=== PATIENT | female | born 1985 | race Caucasian/White ===

== ENCOUNTER 2016-04-05 20:46 | Emergency (ER) | payer MEDICAID, SELFPAY ==
[2016-04-05] MEDS ORDERED: ONDANSETRON 4MG/2ML VIAL (J2405) As Ordered ONE (22:37)
[2016-04-05] MEDS ORDERED: KETOROLAC 30 MG/ML VIAL (J1885) As Ordered ONE (22:37)
[2016-04-05 22:59] LABS: BASO % 0.3 % (0.0-1.0); EOS # 0.1 K/mm3 (0.0-0.50); EOS % 1.7 % (0.0-3.0); LARGE UNSTAINED CELL # 0.2 K/mm3 (0.0-0.4); LARGE UNSTAINED CELL % 2.6 % (0.0-4.0); LYMPH # 1.4 K/mm3 (1.5-4.5); LYMPH % 19.1 % (24.0-44.0); MEAN CORPUSCULAR HEMOGLOBIN 31.3 pg (27.0-33.0); MONO # 0.4 K/mm3 (0.0-0.8); MONO % 6.7 % (0.0-5.0); NEUTROPHILS # 4.5 K/mm3 (1.8-7.7); NEUTROPHILS % 69.6 % (36.0-66.0); PLATELET COUNT, AUTOMATED 237 k/mm3 (150-450); RED CELL DISTRIBUTION WIDTH 12.8 % (11.5-14.5); WHITE BLOOD COUNT 6.5 K/mm3 (4.0-10.0)
[2016-04-05 23:20] LABS: ALBUMIN 3.9 GM/DL (3.2-5.2); ALBUMIN/GLOBULIN RATIO 1.03 (1.00-1.93); ALKALINE PHOSPHATASE 59 U/L (45-117); ALT/SGPT 12 U/L (12-78); ANION GAP 8 MEQ/L (8-16); AST/SGOT 22 U/L (15-37); BILIRUBIN,DIRECT < 0.1 MG/DL (0.0-0.2); BILIRUBIN,TOTAL 0.6 MG/DL (0.2-1.0); BLOOD UREA NITROGEN 11 MG/DL (7-18); CALCIUM LEVEL 8.4 MG/DL (8.5-10.1); CARBON DIOXIDE LEVEL 25 MEQ/L (21-32); CHLORIDE LEVEL 106 MEQ/L (98-107); CREATININE FOR GFR 0.76 MG/DL (0.55-1.02); GLOMERULAR FILTRATION RATE > 60.0 (>60); GLUCOSE, FASTING 82 MG/DL (70-105); POTASSIUM SERUM 3.8 MEQ/L (3.5-5.1); SODIUM LEVEL 139 MEQ/L (136-145); TOTAL PROTEIN 7.7 GM/DL (6.4-8.2)
--- NOTE | 2016-04-05 23:48 | EDDOCDS ---
Physician Documentation [facility] Name: Alexa Thrasher Age: 30 yrs Sex: Female : 1985 Arrival Date: 04/05/2016 Time: 20:46 Bed I1 / M1 Private MD: Disposition: 04/05/16 23:37 Discharged to Home/Self Care. Impression: Generalized abdominal pain, Nausea and vomiting. - Condition is Stable. - Discharge Instructions: Viral Gastroenteritis. - Prescriptions for ZOFRAN ODT 4 mg - dissolve 1 tablet by ORAL route 4 times per day As needed do not chew, do not swallow whole; 10 tablet. - Medication Reconciliation form. - Follow up: Private Physician; When: Call to arrange an appointment; Reason: Wound/Symptom Recheck, Recheck today's complaints, Worsening of conditions, Continuance of care. - Problem is an ongoing problem. - Symptoms have improved. Historical: - Allergies: no known allergies; - PMHx: none; - PSHx: ; - Social history: Smoking status: Patient uses tobacco products, light tobacco smoker. No barriers to communication noted, The patient speaks fluent Sammarinese, Speaks appropriately for age. - Family history: Not pertinent. - : The pt / caregiver states he / she is not on anticoagulants. Home medication list is obtained from the patient. - Exposure Risk Screening:: None identified. 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 7 in. (170.18 cm) (R); Pain 7/10; 23:45 BP 106 / 63; Pulse 65; Resp 18; Temp 98.2(O); Pulse Ox 100% on R/A; Pain 0/10; kas2 20:48 Body Mass Index 21.93 (63.50 kg, 170.18 cm) lr2 MDM: 22:28 NS 0.9% 1000 ml IV at bolus once ordered. cc10 22:28 Ondansetron 4 mg IVP once ordered. cc10 22:28 ketorolac 30 mg IVP once ordered. cc10 22:28 IV Saline Lock ordered. cc10 22:28 Undress patient appropriately for examination ordered. cc10 22:29 Basic Metabolic Profile Ordered. EDMS 22:29 CBC with Diff Ordered. EDMS 22:29 Lipase Ordered. EDMS 22:29 Liver Profile Ordered. EDMS 22:29 Urinalysis Ordered. EDMS 22:29 Urine Culture Ordered. EDMS 22:29 Abdomen, Flat\E\Upright,PA Chest Ordered. EDMS 22:29 NOTHING BY MOUTH+DIET ordered. EDMS 23:05 CBC with Diff Reviewed. cc10 23:31 Basic Metabolic Profile Reviewed. cc10 23:31 Urinalysis Reviewed. cc10 23:31 Lipase Reviewed. cc10 23:31 Liver Profile Reviewed. cc10 Administered Medications: 22:47 Drug: NS 0.9% 1000 ml [sodium chloride 0.9 % intravenous solution] Route: IV; Rate: kc3 bolus; Site: right antecubital; 23:46 Follow up: IV Status: Completed infusion; IV Intake: 1000ml kas2 22:49 Drug: Ondansetron 4 mg [ondansetron HCl 2 mg/mL intravenous solution (2 mL)] Route: kc3 IVP; Site: right antecubital; 22:50 Drug: ketorolac 30 mg [ketorolac 30 mg/mL (1 mL) injection solution (1 mL)] Route: IVP; kc3 Site: right antecubital; Signatures: Dispatcher [employer] EDGilmar Kingsley RN RN mlb1 Michael Diamond, PADonC PA-C cc10 Goldie Lozano RN RN kas2 Glenny Romero RN kc3 MTDD
--- NOTE | 2016-04-05 23:48 | EDDOCDS ---
Nurse's Notes [facility] Name: Alexa Thrasher Age: 30 yrs Sex: Female : 1985 Arrival Date: 04/05/2016 Time: 20:46 Bed I1 / M1 Private MD: Diagnosis: Generalized abdominal pain;Nausea and vomiting Presentation: 04/05 20:54 Presenting complaint: Patient states: N/V fatigue feeling ill since Monday no BM for mlb1 the past 5 days. Risk factors: the patient reports a small or scant amount of vaginal bleeding. Adult Sepsis Screening: The patient does not have new or worsening altered mentation. Patient's respiratory rate is less than 22. Systolic blood pressure is greater than 100. Patient has a qSOFA score of 0- Negative Sepsis Screen. Suicide/Homicide risk assessment- the patient denies having any suicidal and/or homicidal ideations and does not present with any other emotional, behavioral or mental health complaints. Status: Patient is not a community service aide or dependent. Transition of care: patient was not received from another setting of care. 20:54 Method Of Arrival: Walkin/Carried/Asstd mlb1 20:54 Acuity: RAJINDER Level 3 mlb1 Triage Assessment: 20:57 General: Appears in no apparent distress, Behavior is appropriate for age, cooperative. mlb1 Pain: Location: umbilical area Pain currently is 3 out of 10 on a pain scale. At worst was 10 out of 10 on a pain scale. Pt Declines HIV testing. GI: Reports constipation, nausea, vomiting. 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 No barriers to communication noted, The patient speaks fluent Hungarian, Speaks appropriately for age. - Family history: Not pertinent. - : The pt / caregiver states he / she is not on anticoagulants. Home medication list is obtained from the patient. - Exposure Risk Screening:: None identified. Screenin:55 Screening information is obtained from the patient. Fall risk: No risks identified. kas2 Assistance ADL's: requires no assistance with activities of daily living. Abuse/DV Screen: The patient / caregiver reports he/she is: not in a situation that causes fear, pain or injury. Nutritional screening: No deficits noted. Advance Directives: Currently, there is no health care proxy. There is no active DNR order. There is no living will. There is no Power of Plant Control Aide. home support is adequate. Assessment: 22:53 General: Appears in no apparent distress, uncomfortable, well nourished, well groomed, kas2 Behavior is appropriate for age, cooperative. Pain: Location: umbilical area and abdomen and left lower quadrant and right lower quadrant Pain currently is 6 out of 10 on a pain scale. Neurological: Level of Consciousness is awake, alert, Oriented to person, place, time. Cardiovascular: Rhythm is regular Chest pain. Respiratory: Airway is patent Respiratory effort is even, unlabored, Respiratory pattern is regular, symmetrical, Breath sounds are clear bilaterally. GI: Abdomen is flat, non- distended Bowel sounds present X 4 quads. Abd is soft and non tender X 4 quads. Reports nausea, vomiting. Derm: Skin is intact, Skin is dry, Skin is pale, Skin temperature is warm. Vital Signs: 20:48 BP 94 / 53; Pulse 80; Resp 17; Temp 97.7(O); Pulse Ox 100% on R/A; Weight 63.5 kg (R); lr2 Height 5 ft. 7 in. (170.18 cm) (R); Pain 7/10; 23:45 BP 106 / 63; Pulse 65; Resp 18; Temp 98.2(O); Pulse Ox 100% on R/A; Pain 0/10; kas2 20:48 Body Mass Index 21.93 (63.50 kg, 170.18 cm) lr2 Vitals: 20:48 Log In Time: April 05, 2016 at 20:46. lr2 ED Course: 20:47 Patient visited by Susannah Obrien. lr2 20:47 Patient moved to Waiting lr2 20:49 Patient moved to Pre RCE lr2 20:54 Patient visited by Gilmar Wylie, MORA. mlb1 20:56 Triage Initiated mlb1 20:59 Patient visited by Gilmar Wylie, MORA. mlb1 21:52 Patient moved to Triage 2 mcp 22:21 Michael Diamond PA-C [facility]. cc10 22:21 Jacques Valdez MD is Attending Physician. cc10 22:21 Patient visited by Michael Diamond PA-C. cc10 22:21 Patient visited by Michael Diamond PA-C. cc10 22:29 Patient moved to I1 / M1 mcp 22:47 Basic Metabolic Profile Sent. kc3 22:47 CBC with Diff Sent. kc3 22:47 Lipase Sent. kc3 22:47 Liver Profile Sent. kc3 22:47 Urinalysis Sent. kc3 22:47 Urine Culture Sent. kc3 22:50 Inserted saline lock: 20 gauge in right antecubital area and blood collected. The kc3 patient tolerated the procedure well. placed by MORA Amezcua. 22:51 Patient visited by Glenny Romero RN. kc3 22:55 Patient visited by Goldie Lozano RN. kas2 22:57 Patient moved to Radiology kaleb 23:31 Patient moved to I1 / M1 kaleb 23:47 The patient / caregiver is instructed regarding the plan of care and ED course. kas2 23:47 Discontinued IV bleeding controlled, pressure dressing applied, No redness/swelling at kas2 site. No procedures done that require assistance. Administered Medications: 22:47 Drug: NS 0.9% 1000 ml [sodium chloride 0.9 % intravenous solution] Route: IV; Rate: kc3 bolus; Site: right antecubital; 23:46 Follow up: IV Status: Completed infusion; IV Intake: 1000ml kas2 22:49 Drug: Ondansetron 4 mg [ondansetron HCl 2 mg/mL intravenous solution (2 mL)] Route: kc3 IVP; Site: right antecubital; 22:50 Drug: ketorolac 30 mg [ketorolac 30 mg/mL (1 mL) injection solution (1 mL)] Route: IVP; kc3 Site: right antecubital; Intake: 23:46 IV: 1000.00ml; Total: 1000.00ml. kas2 Order Results: Lab Order: Basic Metabolic Profile; SPEC'M 04/05/16 22:49 Test: GLUCOSE, FASTING; Value: 82; Range: 70-105; Units: MG/DL; Status: F Test: BLOOD UREA NITROGEN; Value: 11; Range: 7-18; Units: MG/DL; Status: F Test: CREATININE FOR GFR; Value: 0.76; Range: 0.55-1.02; Units: MG/DL; Status: F Test: GLOMERULAR FILTRATION RATE; Value: > 60.0; Range: >60; Status: F Test: SODIUM LEVEL; Value: 139; Range: 136-145; Units: MEQ/L; Status: F Test: POTASSIUM SERUM; Value: 3.8; Range: 3.5-5.1; Units: MEQ/L; Status: F Test: CHLORIDE LEVEL; Value: 106; Range: 98-107; Units: MEQ/L; Status: F Test: CARBON DIOXIDE LEVEL; Value: 25; Range: 21-32; Units: MEQ/L; Status: F Test: ANION GAP; Value: 8; Range: 8-16; Units: MEQ/L; Status: F Test: CALCIUM LEVEL; Value: 8.4; Range: 8.5-10.1; Abnormal: Below low normal; Units: MG/DL; Status: F Test Note: ; Units are mL/min/1.73 m2 Chronic Kidney Disease Staging per NKF: Stage I & II GFR >=60 Normal to Mildly Decreased Stage III GFR 30-59 Moderately Decreased Stage IV GFR 15-29 Severely Decreased Stage V GFR <15 Very Little GFR Left ESRD GFR <15 on V[employer]IN[employer]IST Lab Order: CBC with Diff; SPEC'M 04/05/16 22:49 Test: WHITE BLOOD COUNT; Value: 6.5; Range: 4.0-10.0; Units: K/mm3; Status: F Test: RED BLOOD COUNT; Value: 4.80; Range: 4.00-5.40; Units: M/mm3; Status: F Test: HEMOGLOBIN; Value: 15.0; Range: 12.0-16.0; Units: g/dl; Status: F Test: HEMATOCRIT; Value: 44.2; Range: 36.0-47.0; Units: %; Status: F Test: MEAN CORPUSCULAR VOLUME; Value: 92.0; Range: 80.0-96.0; Units: fl; Status: F Test: MEAN CORPUSCULAR HEMOGLOBIN; Value: 31.3; Range: 27.0-33.0; Units: pg; Status: F Test: MEAN CORPUSCULAR HGB CONC; Value: 34.0; Range: 32.0-36.5; Units: g/dl; Status: F Test: RED CELL DISTRIBUTION WIDTH; Value: 12.8; Range: 11.5-14.5; Units: %; Status: F Test: PLATELET COUNT, AUTOMATED; Value: 237; Range: 150-450; Units: k/mm3; Status: F Test: NEUTROPHILS %; Value: 69.6; Range: 36.0-66.0; Abnormal: Above high normal; Units: %; Status: F Test: LYMPH %; Value: 19.1; Range: 24.0-44.0; Abnormal: Below low normal; Units: %; Status: F Test: MONO %; Value: 6.7; Range: 0.0-5.0; Abnormal: Above high normal; Units: %; Status: F Test: EOS %; Value: 1.7; Range: 0.0-3.0; Units: %; Status: F Test: BASO %; Value: 0.3; Range: 0.0-1.0; Units: %; Status: F Test: LARGE UNSTAINED CELL %; Value: 2.6; Range: 0.0-4.0; Units: %; Status: F Test: NEUTROPHILS #; Value: 4.5; Range: 1.8-7.7; Units: K/mm3; Status: F Test: LYMPH #; Value: 1.4; Range: 1.5-4.5; Abnormal: Below low normal; Units: K/mm3; Status: F Test: MONO #; Value: 0.4; Range: 0.0-0.8; Units: K/mm3; Status: F Test: EOS #; Value: 0.1; Range: 0.0-0.50; Units: K/mm3; Status: F Test: BASO #; Value: 0.0; Range: 0.0-0.2; Units: K/mm3; Status: F Test: LARGE UNSTAINED CELL #; Value: 0.2; Range: 0.0-0.4; Units: K/mm3; Status: F Lab Order: Lipase; SPEC'M 04/05/16 22:49 Test: LIPASE; Value: 162; Range: 73-393; Units: U/L; Status: F Lab Order: Liver Profile; SPEC'M 04/05/16 22:49 Test: AST/SGOT; Value: 22; Range: 15-37; Units: U/L; Status: F Test: ALT/SGPT; Value: 12; Range: 12-78; Units: U/L; Status: F Test: ALKALINE PHOSPHATASE; Value: 59; Range: 45-117; Units: U/L; Status: F Test: BILIRUBIN,TOTAL; Value: 0.6; Range: 0.2-1.0; Units: MG/DL; Status: F Test: BILIRUBIN,DIRECT; Value: < 0.1; Range: 0.0-0.2; Units: MG/DL; Status: F Test: TOTAL PROTEIN; Value: 7.7; Range: 6.4-8.2; Units: GM/DL; Status: F Test: ALBUMIN; Value: 3.9; Range: 3.2-5.2; Units: GM/DL; Status: F Test: ALBUMIN/GLOBULIN RATIO; Value: 1.03; Range: 1.00-1.93; Status: F Lab Order: Urinalysis; SPEC'M 04/05/16 22:49 Test: APPEARANCE, URINE; Value: CLOUDY; Range: CLEAR; Abnormal: Above high normal; Status: F Test: COLOR, URINE; Value: YELLOW; Range: YELLOW; Status: F Test: PH,URINE; Value: 5.0; Range: 5.0-9.0; Units: UNITS; Status: F Test: SPECIFIC GRAVITY URINE AUTO; Value: 1.018; Range: 1.002-1.035; Status: F Test: PROTEIN, URINE AUTO; Value: NEGATIVE; Range: NEGATIVE; Units: mg/dL; Status: F Test: GLUCOSE, URINE (UA) AUTO; Value: NEGATIVE; Range: NEGATIVE; Units: mg/dL; Status: F Test: KETONE, URINE AUTO; Value: 1+; Range: NEGATIVE; Abnormal: Above high normal; Units: mg/dL; Status: F Test: UROBILINOGEN, URINE AUTO; Value: 2.0; Range: 0.0-2.0; Abnormal: Above high normal; Units: mg/dL; Status: F Test: BILIRUBIN, URINE AUTO; Value: NEGATIVE; Range: NEGATIVE; Status: F Test: NITRITE, URINE AUTO; Value: POSITIVE; Range: NEGATIVE; Status: F Test: LEUKOCYTE ESTERASE, URINE AUTO; Value: NEGATIVE; Range: NEGATIVE; Status: F Test: BLOOD, URINE BLOOD; Value: 2+; Range: NEGATIVE; Abnormal: Above high normal; Status: F Test: WBC, URINE AUTO; Value: 3; Range: 0-3; Units: /HPF; Status: F Test: RBC, URINE AUTO; Value: 4; Range: 0-3; Abnormal: Above high normal; Units: /HPF; Status: F Test: BACTERIA, URINE AUTO; Value: 2+; Range: NEGATIVE; Abnormal: Above high normal; Status: F Test: SQUAMOUS EPITHELIAL CELL UR AU; Value: 8; Range: 0-6; Units: /HPF; Status: F Test: MUCUS, URINE; Value: SMALL; Range: NEGATIVE; Status: F Test: HYALINE CAST, URINE AUTO; Value: 0; Range: 0-1; Units: /LPF; Status: F Outcome: 23:37 Discharge ordered by Provider. cc10 23:46 Discharge Assessment: patient administered narcotics - no. The following High Risk [facility] Discharge criteria are identified: None. Discharged to home ambulatory, with significant other. Condition: good Condition: stable Condition: improved. CT Study completed. Property :Personal belongings accompany Pt. 23:47 Patient left the ED. [facility] Signatures: Aspen Bynum RN RN Christian Hawkins Michael B RN RN mlb1 Michael Diamond, PA-C PA-C cc10 Glenny Romero RN RN [id number] Goldie Lozano RN RN [email or web address] Susannah Obrien2 Corrections: (The following items were deleted from the chart) 20:57 20:54 Presenting complaint: Patient states: N/V fatigue feeling ill since Monday mlb1 mlb1 20:57 20:54 Acuity: RAJINDER Level 4 mlb1 mlb1 MTDD
--- NOTE | 2016-04-06 08:34 | REP ---
CHEST AND ABDOMEN: On the chest study, the cardiomediastinal structures, lungs, diaphragms and bony thorax are normal. On the abdominal study, there is some gas and fecal material in the colon. No evidence for ileus, free air or obstruction. At the umbilicus is an ornamentation. The lumbar spine shows minimal to moderate dextroscoliosis with the apex at the level of L1-L2. IMPRESSION: There are no acute findings in the chest or abdomen. Dextroscoliosis lumbar spine. Unreviewed
--- NOTE | 2016-04-08 00:48 | EDDOCDS ---
Physician Documentation [facility] Name: Alexa Thrasher Age: 30 yrs Sex: Female : 1985 Arrival Date: 04/05/2016 Time: 20:46 Bed I1 / M1 Private MD: Disposition: 04/05/16 23:37 Discharged to Home/Self Care. Impression: Generalized abdominal pain, Nausea and vomiting. - Condition is Stable. - Discharge Instructions: Viral Gastroenteritis. - Prescriptions for ZOFRAN ODT 4 mg - dissolve 1 tablet by ORAL route 4 times per day As needed do not chew, do not swallow whole; 10 tablet. - Medication Reconciliation form. - Follow up: Private Physician; When: Call to arrange an appointment; Reason: Wound/Symptom Recheck, Recheck today's complaints, Worsening of conditions, Continuance of care. - Problem is an ongoing problem. - Symptoms have improved. Historical: - Allergies: no known allergies; - PMHx: none; - PSHx: ; - Social history: Smoking status: Patient uses tobacco products, light tobacco smoker. No barriers to communication noted, The patient speaks fluent Pakistani, Speaks appropriately for age. - Family history: Not pertinent. - : The pt / caregiver states he / she is not on anticoagulants. Home medication list is obtained from the patient. - Exposure Risk Screening:: None identified. 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 7 in. (170.18 cm) (R); Pain 7/10; 23:45 BP 106 / 63; Pulse 65; Resp 18; Temp 98.2(O); Pulse Ox 100% on R/A; Pain 0/10; kas2 20:48 Body Mass Index 21.93 (63.50 kg, 170.18 cm) lr2 MDM: 22:28 NS 0.9% 1000 ml IV at bolus once ordered. cc10 22:28 Ondansetron 4 mg IVP once ordered. cc10 22:28 ketorolac 30 mg IVP once ordered. cc10 22:28 IV Saline Lock ordered. cc10 22:28 Undress patient appropriately for examination ordered. cc10 22:29 Basic Metabolic Profile Ordered. EDMS 22:29 CBC with Diff Ordered. EDMS 22:29 Lipase Ordered. EDMS 22:29 Liver Profile Ordered. EDMS 22:29 Urinalysis Ordered. EDMS 22:29 Urine Culture Ordered. EDMS 22:29 Abdomen, Flat\E\Upright,PA Chest Ordered. EDMS 22:29 NOTHING BY MOUTH+DIET ordered. EDMS 23:05 CBC with Diff Reviewed. cc10 23:31 Basic Metabolic Profile Reviewed. cc10 23:31 Urinalysis Reviewed. cc10 23:31 Lipase Reviewed. cc10 23:31 Liver Profile Reviewed. cc10 04/06 13:50 T-Sheet-- Draft Copy was scanned into [employer] and attached to record. gb Administered Medications: 04/05 22:47 Drug: NS 0.9% 1000 ml [sodium chloride 0.9 % intravenous solution] Route: IV; Rate: kc3 bolus; Site: right antecubital; 23:46 Follow up: IV Status: Completed infusion; IV Intake: 1000ml [facility] 22:49 Drug: Ondansetron 4 mg [ondansetron HCl 2 mg/mL intravenous solution (2 mL)] Route: kc3 IVP; Site: right antecubital; 22:50 Drug: ketorolac 30 mg [ketorolac 30 mg/mL (1 mL) injection solution (1 mL)] Route: IVP; kc3 Site: right antecubital; Signatures: Dispatcher [place] [employer] Gissel Reed, Reg Reg Gilmar Wylie RN RN mlb1 Michael Diamond, PA-C PA-C cc10 Goldie Lozano RN RN kas2 Glenny Romero RN kc3 The chart was reviewed and I authenticate all verbal orders and agree with the evaluation and treatment provided.Attachments: 04/06 13:50 T-Sheet-- Draft Copy Chart Complete MTDD
--- NOTE | 2016-04-08 00:48 | EDDOCDS ---
Nurse's Notes [facility] Name: Alexa Thrasher Age: 30 yrs Sex: Female : 1985 Arrival Date: 04/05/2016 Time: 20:46 Bed I1 / M1 Private MD: Diagnosis: Generalized abdominal pain;Nausea and vomiting Presentation: 04/05 20:54 Presenting complaint: Patient states: N/V fatigue feeling ill since Monday no BM for mlb1 the past 5 days. Risk factors: the patient reports a small or scant amount of vaginal bleeding. Adult Sepsis Screening: The patient does not have new or worsening altered mentation. Patient's respiratory rate is less than 22. Systolic blood pressure is greater than 100. Patient has a qSOFA score of 0- Negative Sepsis Screen. Suicide/Homicide risk assessment- the patient denies having any suicidal and/or homicidal ideations and does not present with any other emotional, behavioral or mental health complaints. Status: Patient is not a environmental services associate or dependent. Transition of care: patient was not received from another setting of care. 20:54 Method Of Arrival: Walkin/Carried/Asstd mlb1 20:54 Acuity: RAJINDER Level 3 mlb1 Triage Assessment: 20:57 General: Appears in no apparent distress, Behavior is appropriate for age, cooperative. mlb1 Pain: Location: umbilical area Pain currently is 3 out of 10 on a pain scale. At worst was 10 out of 10 on a pain scale. Pt Declines HIV testing. GI: Reports constipation, nausea, vomiting. RN REVIEW: 20:58 LMP 03/30/2016 mlb1 Historical: - Allergies: no known allergies; - PMHx: none; - PSHx: ; - Social history: Smoking status: Patient uses tobacco products, light tobacco smoker. No barriers to communication noted, The patient speaks fluent Maltese, Speaks appropriately for age. - Family history: Not pertinent. - : The pt / caregiver states he / she is not on anticoagulants. Home medication list is obtained from the patient. - Exposure Risk Screening:: None identified. Screenin:55 Screening information is obtained from the patient. Fall risk: No risks identified. kas2 Assistance ADL's: requires no assistance with activities of daily living. Abuse/DV Screen: The patient / caregiver reports he/she is: not in a situation that causes fear, pain or injury. Nutritional screening: No deficits noted. Advance Directives: Currently, there is no health care proxy. There is no active DNR order. There is no living will. There is no Power of Freight Conductor. home support is adequate. Assessment: 22:53 General: Appears in no apparent distress, uncomfortable, well nourished, well groomed, kas2 Behavior is appropriate for age, cooperative. Pain: Location: umbilical area and abdomen and left lower quadrant and right lower quadrant Pain currently is 6 out of 10 on a pain scale. Neurological: Level of Consciousness is awake, alert, Oriented to person, place, time. Cardiovascular: Rhythm is regular Chest pain. Respiratory: Airway is patent Respiratory effort is even, unlabored, Respiratory pattern is regular, symmetrical, Breath sounds are clear bilaterally. GI: Abdomen is flat, non- distended Bowel sounds present X 4 quads. Abd is soft and non tender X 4 quads. Reports nausea, vomiting. Derm: Skin is intact, Skin is dry, Skin is pale, Skin temperature is warm. Vital Signs: 20:48 BP 94 / 53; Pulse 80; Resp 17; Temp 97.7(O); Pulse Ox 100% on R/A; Weight 63.5 kg (R); lr2 Height 5 ft. 7 in. (170.18 cm) (R); Pain 7/10; 23:45 BP 106 / 63; Pulse 65; Resp 18; Temp 98.2(O); Pulse Ox 100% on R/A; Pain 0/10; kas2 20:48 Body Mass Index 21.93 (63.50 kg, 170.18 cm) lr2 Vitals: 20:48 Log In Time: April 05, 2016 at 20:46. lr2 ED Course: 20:47 Patient visited by Susannah Obrien. lr2 20:47 Patient moved to Waiting lr2 20:49 Patient moved to Pre RCE lr2 20:54 Patient visited by Gilmar Wylie, MORA. mlb1 20:56 Triage Initiated mlb1 20:59 Patient visited by Gilmar Wylie, MORA. mlb1 21:52 Patient moved to Triage 2 mcp 22:21 [facility] Diamond [facility] cc10 22:21 Jacques Valdez MD is Attending Physician. cc10 22:21 Patient visited by Michael Diamond PA-C. cc10 22:21 Patient visited by Michael Diamond PA-C. cc10 22:29 Patient moved to I1 / M1 mcp 22:47 Basic Metabolic Profile Sent. kc3 22:47 CBC with Diff Sent. kc3 22:47 Lipase Sent. kc3 22:47 Liver Profile Sent. kc3 22:47 Urinalysis Sent. kc3 22:47 Urine Culture Sent. kc3 22:50 Inserted saline lock: 20 gauge in right antecubital area and blood collected. The kc3 patient tolerated the procedure well. placed by MORA Amezcua. 22:51 Patient visited by Glenny Romero RN. kc3 22:55 Patient visited by Goldie Lozano RN. kas2 22:57 Patient moved to Radiology kaleb 23:31 Patient moved to I1 / M1 kaleb 23:47 The patient / caregiver is instructed regarding the plan of care and ED course. kas2 23:47 Discontinued IV bleeding controlled, pressure dressing applied, No redness/swelling at kas2 site. No procedures done that require assistance. 04/06 08:45 Abdomen, Flat\E\Upright,PA Chest Returned. EDMS 13:50 T-Sheet-- Draft Copy was scanned into [employer] and attached to record. gb Administered Medications: 04/05 22:47 Drug: NS 0.9% 1000 ml [sodium chloride 0.9 % intravenous solution] Route: IV; Rate: kc3 bolus; Site: right antecubital; 23:46 Follow up: IV Status: Completed infusion; IV Intake: 1000ml [facility] 22:49 Drug: Ondansetron 4 mg [ondansetron HCl 2 mg/mL intravenous solution (2 mL)] Route: kc3 IVP; Site: right antecubital; 22:50 Drug: ketorolac 30 mg [ketorolac 30 mg/mL (1 mL) injection solution (1 mL)] Route: IVP; kc3 Site: right antecubital; Intake: 23:46 IV: 1000.00ml; Total: 1000.00ml. kas2 Order Results: Lab Order: Basic Metabolic Profile; SPEC'M 04/05/16 22:49 Test: GLUCOSE, FASTING; Value: 82; Range: 70-105; Units: MG/DL; Status: F Test: BLOOD UREA NITROGEN; Value: 11; Range: 7-18; Units: MG/DL; Status: F Test: CREATININE FOR GFR; Value: 0.76; Range: 0.55-1.02; Units: MG/DL; Status: F Test: GLOMERULAR FILTRATION RATE; Value: > 60.0; Range: >60; Status: F Test: SODIUM LEVEL; Value: 139; Range: 136-145; Units: MEQ/L; Status: F Test: POTASSIUM SERUM; Value: 3.8; Range: 3.5-5.1; Units: MEQ/L; Status: F Test: CHLORIDE LEVEL; Value: 106; Range: 98-107; Units: MEQ/L; Status: F Test: CARBON DIOXIDE LEVEL; Value: 25; Range: 21-32; Units: MEQ/L; Status: F Test: ANION GAP; Value: 8; Range: 8-16; Units: MEQ/L; Status: F Test: CALCIUM LEVEL; Value: 8.4; Range: 8.5-10.1; Abnormal: Below low normal; Units: MG/DL; Status: F Test Note: ; Units are mL/min/1.73 m2 Chronic Kidney Disease Staging per NKF: Stage I & II GFR >=60 Normal to Mildly Decreased Stage III GFR 30-59 Moderately Decreased Stage IV GFR 15-29 Severely Decreased Stage V GFR <15 Very Little GFR Left ESRD GFR <15 on HOME VISITS NURSE Lab Order: CBC with Diff; SPEC'M 04/05/16 22:49 Test: WHITE BLOOD COUNT; Value: 6.5; Range: 4.0-10.0; Units: K/mm3; Status: F Test: RED BLOOD COUNT; Value: 4.80; Range: 4.00-5.40; Units: M/mm3; Status: F Test: HEMOGLOBIN; Value: 15.0; Range: 12.0-16.0; Units: g/dl; Status: F Test: HEMATOCRIT; Value: 44.2; Range: 36.0-47.0; Units: %; Status: F Test: MEAN CORPUSCULAR VOLUME; Value: 92.0; Range: 80.0-96.0; Units: fl; Status: F Test: MEAN CORPUSCULAR HEMOGLOBIN; Value: 31.3; Range: 27.0-33.0; Units: pg; Status: F Test: MEAN CORPUSCULAR HGB CONC; Value: 34.0; Range: 32.0-36.5; Units: g/dl; Status: F Test: RED CELL DISTRIBUTION WIDTH; Value: 12.8; Range: 11.5-14.5; Units: %; Status: F Test: PLATELET COUNT, AUTOMATED; Value: 237; Range: 150-450; Units: k/mm3; Status: F Test: NEUTROPHILS %; Value: 69.6; Range: 36.0-66.0; Abnormal: Above high normal; Units: %; Status: F Test: LYMPH %; Value: 19.1; Range: 24.0-44.0; Abnormal: Below low normal; Units: %; Status: F Test: MONO %; Value: 6.7; Range: 0.0-5.0; Abnormal: Above high normal; Units: %; Status: F Test: EOS %; Value: 1.7; Range: 0.0-3.0; Units: %; Status: F Test: BASO %; Value: 0.3; Range: 0.0-1.0; Units: %; Status: F Test: LARGE UNSTAINED CELL %; Value: 2.6; Range: 0.0-4.0; Units: %; Status: F Test: NEUTROPHILS #; Value: 4.5; Range: 1.8-7.7; Units: K/mm3; Status: F Test: LYMPH #; Value: 1.4; Range: 1.5-4.5; Abnormal: Below low normal; Units: K/mm3; Status: F Test: MONO #; Value: 0.4; Range: 0.0-0.8; Units: K/mm3; Status: F Test: EOS #; Value: 0.1; Range: 0.0-0.50; Units: K/mm3; Status: F Test: BASO #; Value: 0.0; Range: 0.0-0.2; Units: K/mm3; Status: F Test: LARGE UNSTAINED CELL #; Value: 0.2; Range: 0.0-0.4; Units: K/mm3; Status: F Lab Order: Lipase; SPEC'M 04/05/16 22:49 Test: LIPASE; Value: 162; Range: 73-393; Units: U/L; Status: F Lab Order: Liver Profile; SPEC'M 04/05/16 22:49 Test: AST/SGOT; Value: 22; Range: 15-37; Units: U/L; Status: F Test: ALT/SGPT; Value: 12; Range: 12-78; Units: U/L; Status: F Test: ALKALINE PHOSPHATASE; Value: 59; Range: 45-117; Units: U/L; Status: F Test: BILIRUBIN,TOTAL; Value: 0.6; Range: 0.2-1.0; Units: MG/DL; Status: F Test: BILIRUBIN,DIRECT; Value: < 0.1; Range: 0.0-0.2; Units: MG/DL; Status: F Test: TOTAL PROTEIN; Value: 7.7; Range: 6.4-8.2; Units: GM/DL; Status: F Test: ALBUMIN; Value: 3.9; Range: 3.2-5.2; Units: GM/DL; Status: F Test: ALBUMIN/GLOBULIN RATIO; Value: 1.03; Range: 1.00-1.93; Status: F Lab Order: Urinalysis; SPEC'M 04/05/16 22:49 Test: APPEARANCE, URINE; Value: CLOUDY; Range: CLEAR; Abnormal: Above high normal; Status: F Test: COLOR, URINE; Value: YELLOW; Range: YELLOW; Status: F Test: PH,URINE; Value: 5.0; Range: 5.0-9.0; Units: UNITS; Status: F Test: SPECIFIC GRAVITY URINE AUTO; Value: 1.018; Range: 1.002-1.035; Status: F Test: PROTEIN, URINE AUTO; Value: NEGATIVE; Range: NEGATIVE; Units: mg/dL; Status: F Test: GLUCOSE, URINE (UA) AUTO; Value: NEGATIVE; Range: NEGATIVE; Units: mg/dL; Status: F Test: KETONE, URINE AUTO; Value: 1+; Range: NEGATIVE; Abnormal: Above high normal; Units: mg/dL; Status: F Test: UROBILINOGEN, URINE AUTO; Value: 2.0; Range: 0.0-2.0; Abnormal: Above high normal; Units: mg/dL; Status: F Test: BILIRUBIN, URINE AUTO; Value: NEGATIVE; Range: NEGATIVE; Status: F Test: NITRITE, URINE AUTO; Value: POSITIVE; Range: NEGATIVE; Status: F Test: LEUKOCYTE ESTERASE, URINE AUTO; Value: NEGATIVE; Range: NEGATIVE; Status: F Test: BLOOD, URINE BLOOD; Value: 2+; Range: NEGATIVE; Abnormal: Above high normal; Status: F Test: WBC, URINE AUTO; Value: 3; Range: 0-3; Units: /HPF; Status: F Test: RBC, URINE AUTO; Value: 4; Range: 0-3; Abnormal: Above high normal; Units: /HPF; Status: F Test: BACTERIA, URINE AUTO; Value: 2+; Range: NEGATIVE; Abnormal: Above high normal; Status: F Test: SQUAMOUS EPITHELIAL CELL UR AU; Value: 8; Range: 0-6; Units: /HPF; Status: F Test: MUCUS, URINE; Value: SMALL; Range: NEGATIVE; Status: F Test: HYALINE CAST, URINE AUTO; Value: 0; Range: 0-1; Units: /LPF; Status: F Radiology Order: Abdomen, Flat\E\Upright,PA Chest Test: Abdomen, Flat\E\Upright,PA Chest REASON FOR EXAMINATION: Abdomen Pain; CHEST AND ABDOMEN:; ; On the chest study, the cardiomediastinal structures, lungs, diaphragms and bony; thorax are normal.; ; On the abdominal study, there is some gas and fecal material in the colon. No; evidence for ileus, free air or obstruction. At the umbilicus is an; ornamentation.; ; The lumbar spine shows minimal to moderate dextroscoliosis with the apex at the; level of L1-L2.; ; IMPRESSION:; There are no acute findings in the chest or abdomen. Dextroscoliosis lumbar; spine.; ; ; ; ; Unreviewed; Outcome: 23:37 Discharge ordered by Provider. cc10 23:46 Discharge Assessment: patient administered narcotics - no. The following High Risk [facility] Discharge criteria are identified: None. Discharged to home ambulatory, with significant other. Condition: good Condition: stable Condition: improved. CT Study completed. Property :Personal belongings accompany Pt. 23:47 [facility] ED. [facility] Signatures: Dispatcher [employer] EDAspen Castillo RN RN mcp Bartlett, Floyd fab Barnhardt, Gloria, Gilmar Ruff RN RN mlb1 Michael Diamond PA-C PADonC cc10 Glenny RomeroRN RN kc3 Goldie LozanoRN RN kas2 Susannah Obrien2 Corrections: (The following items were deleted from the chart) 20:54 Presenting complaint: Patient states: N/V fatigue feeling ill since Monday mlb1 mlb1 20:54 Acuity: RAJINDER Level 4 mlb1 mlb1 Chart Complete MTDD
--- NOTE | 2016-04-08 00:48 | EDDOCDS ---
Physician Documentation [facility] Name: Alexa Thrasher Age: 30 yrs Sex: Female : 1985 Arrival Date: 04/05/2016 Time: 20:46 Bed I1 / M1 Private MD: Disposition: 04/05/16 23:37 Discharged to Home/Self Care. Impression: Generalized abdominal pain, Nausea and vomiting. - Condition is Stable. - Discharge Instructions: Viral Gastroenteritis. - Prescriptions for ZOFRAN ODT 4 mg - dissolve 1 tablet by ORAL route 4 times per day As needed do not chew, do not swallow whole; 10 tablet. - Medication Reconciliation form. - Follow up: Private Physician; When: Call to arrange an appointment; Reason: Wound/Symptom Recheck, Recheck today's complaints, Worsening of conditions, Continuance of care. - Problem is an ongoing problem. - Symptoms have improved. Historical: - Allergies: no known allergies; - PMHx: none; - PSHx: ; - Social history: Smoking status: Patient uses tobacco products, light tobacco smoker. No barriers to communication noted, The patient speaks fluent Luxembourger, Speaks appropriately for age. - Family history: Not pertinent. - : The pt / caregiver states he / she is not on anticoagulants. Home medication list is obtained from the patient. - Exposure Risk Screening:: None identified. TELEPHONE INFORMATION CLERK: 04/05 20:58 LMP 03/30/2016 mlb1 Vital Signs: 20:48 BP 94 / 53; Pulse 80; Resp 17; Temp 97.7(O); Pulse Ox 100% on R/A; Weight 63.5 kg / lr2 139.99 lbs (R); Height 5 ft. 7 in. (170.18 cm) (R); Pain 7/10; 23:45 BP 106 / 63; Pulse 65; Resp 18; Temp 98.2(O); Pulse Ox 100% on R/A; Pain 0/10; kas2 20:48 Body Mass Index 21.93 (63.50 kg, 170.18 cm) lr2 MDM: 22:28 NS 0.9% 1000 ml IV at bolus once ordered. cc10 22:28 Ondansetron 4 mg IVP once ordered. cc10 22:28 ketorolac 30 mg IVP once ordered. cc10 22:28 IV Saline Lock ordered. cc10 22:28 Undress patient appropriately for examination ordered. cc10 22:29 Basic Metabolic Profile Ordered. EDMS 22:29 CBC with Diff Ordered. EDMS 22:29 Lipase Ordered. EDMS 22:29 Liver Profile Ordered. EDMS 22:29 Urinalysis Ordered. EDMS 22:29 Urine Culture Ordered. EDMS 22:29 Abdomen, Flat\E\Upright,PA Chest Ordered. EDMS 22:29 NOTHING BY MOUTH+DIET ordered. EDMS 23:05 CBC with Diff Reviewed. cc10 23:31 Basic Metabolic Profile Reviewed. cc10 23:31 Urinalysis Reviewed. cc10 23:31 Lipase Reviewed. cc10 23:31 Liver Profile Reviewed. cc10 04/06 13:50 T-Sheet-- Draft Copy was scanned into [employer] and attached to record. gb Administered Medications: 04/05 22:47 Drug: NS 0.9% 1000 ml [sodium chloride 0.9 % intravenous solution] Route: IV; Rate: kc3 bolus; Site: right antecubital; 23:46 Follow up: IV Status: Completed infusion; IV Intake: 1000ml [facility] 22:49 Drug: Ondansetron 4 mg [ondansetron HCl 2 mg/mL intravenous solution (2 mL)] Route: kc3 IVP; Site: right antecubital; 22:50 Drug: ketorolac 30 mg [ketorolac 30 mg/mL (1 mL) injection solution (1 mL)] Route: IVP; kc3 Site: right antecubital; Signatures: Dispatcher [employer] EDNE Gissel Reed, Reg Reg Gilmar Wylie RN RN mlb1 Michael Diamond, PA-C PA-C cc10 Goldie Lozano RN RN kas2 Glenny Romero RN kc3 The chart was reviewed and I authenticate all verbal orders and agree with the evaluation and treatment provided.Attachments: 04/06 13:50 T-Sheet-- Draft Copy Chart Complete MTDD
== END 2016-04-05 23:47 | disposition home or self-care (01) ==
LOC: M ED 20:46
DX: R11.2 Nausea with vomiting, unspecified (principal); R19.7 Diarrhea, unspecified; F17.210 Nicotine dependence, cigarettes, uncomplicated
CPT/HCPCS: 36415; 74022; 80048; 80076; 81001; 83690; 85025; 87088; 87186; 96361; 96374; 96375; 99284; J1885; J2405

== ENCOUNTER 2018-01-08 15:17 | Emergency (ER) | payer SELFPAY ==
[2018-01-08 16:34] LABS: BASO % 0.3 % (0.0-1.0); EOS % 0.2 % (0.0-3.0); HEMATOCRIT 39.4 % (36.0-47.0); HEMOGLOBIN 13.8 g/dl (12.0-15.5); IMMATURE GRANULOCYTE % 0.4 % (0-3.0); LYMPH # 1.4 10^3/uL (1.5-4.5); MEAN CORPUSCULAR HEMOGLOBIN 32.2 pg (27.0-33.0); MEAN CORPUSCULAR VOLUME 91.8 fl (80.0-96.0); MONO # 0.6 10^3/uL (0.0-0.8); MONO % 5.8 % (0.0-5.0); NEUTROPHILS % 79.3 % (36.0-66.0); PLATELET COUNT, AUTOMATED 228 10^3/uL (150-450); RED BLOOD COUNT 4.29 10^6/uL (4.00-5.40); RED CELL DISTRIBUTION WIDTH 11.9 % (11.5-14.5)
[2018-01-08 17:27] LABS: ANION GAP 10 MEQ/L (8-16); BLOOD UREA NITROGEN 6 MG/DL (7-18); CALCIUM LEVEL 9.2 MG/DL (8.5-10.1); CARBON DIOXIDE LEVEL 23 MEQ/L (21-32); CHLORIDE LEVEL 104 MEQ/L (98-107); CREATININE FOR GFR 0.59 MG/DL (0.55-1.30); GLOMERULAR FILTRATION RATE > 60.0 (>60); GLUCOSE, FASTING 79 MG/DL (70-100); HCG, SERUM QUANTITATIVE 138148 MIU/ML; LIPASE 175 U/L (73-393); POTASSIUM SERUM 3.9 MEQ/L (3.5-5.1); SODIUM LEVEL 137 MEQ/L (136-145)
[2018-01-08] MEDS: METOCLOPRAMIDE INJ 10MG/2ML VIAL (J2765) IV (18:26)
[2018-01-08] MEDS: NS 1,000 ML IV (18:26)
[2018-01-08] MEDS: PROMETHAZINE INJ 25 MG/ML VIAL (J2550) IV (20:15)
== END 2018-01-08 21:28 | disposition home or self-care (01) ==
LOC: M ED 15:17
DX: O21.0 Mild hyperemesis gravidarum (principal); Z3A.08 8 weeks gestation of pregnancy; Z87.442 Personal history of urinary calculi; Z87.891 Personal history of nicotine dependence
CPT/HCPCS: J2765